=== PATIENT | male | born 1965 | race African-American/Black ===

== ENCOUNTER 2019-06-20 13:02 | Emergency (ER) | payer SELFPAY ==
--- NOTE | 2019-06-20 15:53 | ULT ---
US Venous Doppler Rt Unilat History: Pain Comparison: None. Findings: Real-time grayscale, color, and spectral analysis right lower extremity venous system was p erformed. The common femoral, proximal, proximal portions greater saphenous and deep femoral veins as well as the popliteal posterior tibial veins were interrogated. Normal flow, augmentation, and compression. Impression: No deep venous thrombosis.
== END 2019-06-20 16:11 | disposition home or self-care (01) ==
LOC: ERS 13:02
DX: M79.661 Pain in right lower leg (principal); I10 Essential (primary) hypertension

== ENCOUNTER 2025-05-19 08:27 | Outpatient (CLI) | payer OTHER | END 2025-05-19 08:28 | disposition home or self-care (01) | LOC: DTY/OP 08:27 | PROVIDERS: ATTEND Family Medicine | DX: R73.03 Prediabetes (principal) | CPT/HCPCS: 97802 ==